=== PATIENT | male | born 1965 | race Caucasian/White ===

== ENCOUNTER 2018-10-04 04:06 | Emergency (ER) | payer MEDICAID, MEDICARE ==
[~2018-10-04] VITALS: Ht 188 cm; Wt 107.0 kg
[~2018-10-04 04:06] MED LIST: ALLO100T PO; AMI25T PO; AMIO200T61 PO; ATOR20TA66 PO; ATOR40TA71 PO; BUPR100T5 PO; CLON-529 PO; DIPH1TAB PO; DULO-31 PO; FENO160T13 PO; FURO-149 PO; GLIM1TAB3 PO; KEP500T PO; LISI40TA4 PO; METF500T PO; METO100T7 PO; NEOM14.216 TP; NOR5T PO; NORCO10T PO; POTA10TA19 PO; SITA25TA3 PO; WARF6TAB PO; ZOLP10TA5 PO
--- NOTE | 2018-10-04 04:20 | NUR ---
Patient ambulatory to room. Alert and oriented X4. Patient complains of lumbar region back spasm for around four days. 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 Patient has good CSM's all extremities.
[2018-10-04] MEDS ORDERED: ketorolac trometh inj. 60 MG/2 ML VIAL IM ONE (04:25)
[2018-10-04] MEDS ORDERED: acetaminophen 325mg tablet PO ONE (04:25)
[2018-10-04] MEDS ORDERED: HYDR-3965 PO (05:17)
[2018-10-04] MEDS ORDERED: MELO-100 PO (05:17)
[2018-10-04] MEDS ORDERED: CYCL-1 PO (05:17)
[2018-10-04] MEDS ORDERED: ACET-2615 PO (05:17)
--- NOTE | 2018-10-04 06:24 | NUR ---
Patient states back pain is greatly decreased. Patient exhibits understanding of disch inst. Disch to home.
[2018-10-04 06:27] VITALS: BP 114/78
== END 2018-10-04 06:30 | disposition home or self-care (01) ==
LOC: ER 04:07
DX: M54.5 Low back pain (principal); M79.652 Pain in left thigh; I48.91 Unspecified atrial fibrillation; I25.10 Atherosclerotic heart disease of native coronary artery without angina pectoris; E78.00 Pure hypercholesterolemia, unspecified; I10 Essential (primary) hypertension; K21.9 Gastro-esophageal reflux disease without esophagitis; G89.29 Other chronic pain; E11.42 Type 2 diabetes mellitus with diabetic polyneuropathy; F41.9 Anxiety disorder, unspecified; F32.9 Major depressive disorder, single episode, unspecified; F10.10 Alcohol abuse, uncomplicated; F15.90 Other stimulant use, unspecified, uncomplicated; Z98.890 Other specified postprocedural states; Z79.84 Long term (current) use of oral hypoglycemic drugs; Z79.01 Long term (current) use of anticoagulants; Z79.899 Other long term (current) drug therapy; Y90.9 Presence of alcohol in blood, level not specified
CPT/HCPCS: 96372; 99283; J1885

== ENCOUNTER 2018-10-15 12:46 | Emergency (ER) | payer MEDICARE ==
[~2018-10-15] VITALS: Ht 188 cm; Wt 112.0 kg
[~2018-10-15 12:46] MED LIST changes: +CYCL-1 PO; +HYDR-3965 PO; +MELO-100 PO
[2018-10-15 13:56] VITALS: BP 129/76
== END 2018-10-15 14:11 | disposition home or self-care (01) ==
LOC: ER 12:46
DX: M25.572 Pain in left ankle and joints of left foot (principal); I48.91 Unspecified atrial fibrillation; I25.10 Atherosclerotic heart disease of native coronary artery without angina pectoris; I10 Essential (primary) hypertension; K21.9 Gastro-esophageal reflux disease without esophagitis; N17.9 Acute kidney failure, unspecified; G89.29 Other chronic pain; M10.9 Gout, unspecified; E11.42 Type 2 diabetes mellitus with diabetic polyneuropathy; F41.9 Anxiety disorder, unspecified; F32.9 Major depressive disorder, single episode, unspecified; F15.90 Other stimulant use, unspecified, uncomplicated; Z79.899 Other long term (current) drug therapy; Z79.01 Long term (current) use of anticoagulants
CPT/HCPCS: 73610; 99284